=== PATIENT | female | born 1930 | race Caucasian/White ===

== ENCOUNTER 2016-12-03 14:12 | Emergency (ER) | payer MEDICARE ==
[~2016-12-03 14:12] MED LIST: ALLEGRA60 MG PO; AUGMENTIN875 MG PO; BENADRYL25 M1 PO; CEPHALEXIN500 MG PO; CIPRO250 MG PO; COUMADIN5 MG PO; COZAAR25 MG PO; CRANBERRY125 MG; ENTERIC COATED325 M1 PO; FUROSEMIDE20 MG PO; KLOR-CON 1010 MEQ PO; LORAZEPAM0.5 MG PO; LOVENOX100 MG/ML SC; MICRO-K 10 EQU10 MEQ PO; MORPHINE SULFAT15 M1 PO; MORPHINE SULFATE5 MG; MULTIPLE VITAMIN PO; OMEPRAZOLE20 MG PO; OXYCODONE/ACETA1 TA1 PO; OXYCONTIN CR10 MG PO; TRAZODONE HCL100 MG PO; [UNRECOGNIZED DRUG - OTHER]
--- NOTE | 2016-12-03 16:11 | DIAGNOSTIC IMAGING REPORT ---
PROCEDURE: XR CHEST 1 VIEW INDICATION: SHORTNESS OF BREATH TECHNIQUE: Portable AP view 03:48 p.m. COMPARISON: Chest 11/02/2016, 08/07/2016 FINDINGS: Lungs are clear. Heart and mediastinum are normal. Thorax is normal. IMPRESSION: 1. Negative chest.
--- NOTE | 2016-12-03 17:24 | ED ORDER SUMMARY ---
..... Patient: RONY DE GUZMAN OrderSheet [facility] VisitID: [id number] [address] [place] [place] [address] 86y, F Registration Date/Time: 12/03/2016 ORDER SHEET Weight: 61.2 kg (stated) Allergies: Sulfa Antibiotics GENERAL ORDERS: CBC w Diff Urgent (14:31 12/03/2016 EKoroleva P.A.-C) (Ack 15:02 RKaruga) (15:46 HOShaughnessy R.N.) CMP Urgent (14:31 12/03/2016 EKoroleva P.A.-C) (Ack 15:02 RKaruga) (15:46 HOShaughnessy R.N.) UA-Culture if indicated Urgent (14:31 12/03/2016 EKoroleva P.A.-C) (Ack 15:02 RKaruga) (15:46 HOShaughnessy R.N.) PT with INR Urgent (14:31 12/03/2016 EKoroleva P.A.-C) (Ack 15:02 RKaruga) (15:46 HOShaughnessy R.N.) PTT Urgent (14:31 12/03/2016 EKoroleva P.A.-C) (Ack 15:02 RKaruga) (15:46 HOShaughnessy R.N.) BNP Urgent (14:31 12/03/2016 EKoroleva P.A.-C) (Ack 15:02 RKaruga) (15:46 HOShaughnessy R.N.) PCT (Procalcitonin) Urgent (14:36 12/03/2016 EKoroleva P.A.-C) (Ack 15:02 RKaruga) (15:46 HOShaughnessy R.N.) Chest 1V Urgent (15:29 12/03/2016 EKoroleva P.A.-C) (Ack 15:37 RKaruga) (15:46 HOShaughnessy R.N.) Troponin-I Urgent (15:30 12/03/2016 EKoroleva P.A.-C) (Ack 15:37 RKaruga) (15:46 HOShaughralphy R.N.) EKG - ER Stat (15:30 12/03/2016 EKoroleva P.A.-C) (15:46 OHernandez) UA-Culture if indicated Urgent (17:14 12/03/2016 EKoroleva P.A.-C) (Ack 17:23 RKaruga) (18:37 HOShaughnessy R.N.) - (Antimicrobial susceptibility: culture with antibiotic specific: Ertapenam, Primaxin) (17:20 12/03/2016 EKoroleva P.A.-C) (18:37 HOShaughnessy R.N.) Culture, Urine (Urine, Catheter) (on second urine sent , catheter urine sample ) Urgent (18:26 12/03/2016 EKoroleva P.A.-C) (18:37 HOShaughnessy R.N.) MEDICATION ORDERS: IV FLUIDS: ORDER SHEET NOTES: [Electronically signed by Balbina JovelACarlos-Dagoberto (18:06 12/03/2016)] [Electronically signed by Brandan Cuevas R.N. (18:38 12/03/2016)] [Electronically locked/signed by Brandan Cuevas R.N. (18:38 12/03/2016)]
--- NOTE | 2016-12-03 17:24 | ED ORDER SUMMARY ---
..... Patient: RONY DE GUZMAN OrderSheet [facility] VisitID: [id number] [address] [place] [address] 86y, F Registration Date/Time: 12/03/2016 ORDER SHEET Weight: 61.2 kg (stated) Allergies: Sulfa Antibiotics GENERAL ORDERS: CBC w Diff Urgent (14:31 12/03/2016 EKoroleva P.A.-C) (Ack 15:02 RKaruga) (15:46 HOShaughnessy R.N.) CMP Urgent (14:31 12/03/2016 EKoroleva P.A.-C) (Ack 15:02 RKaruga) (15:46 HOShaughnessy R.N.) UA-Culture if indicated Urgent (14:31 12/03/2016 EKoroleva P.A.-C) (Ack 15:02 RKaruga) (15:46 HOShaughnessy R.N.) PT with INR Urgent (14:31 12/03/2016 EKoroleva P.A.-C) (Ack 15:02 RKaruga) (15:46 HOShaughnessy R.N.) PTT Urgent (14:31 12/03/2016 EKoroleva P.A.-C) (Ack 15:02 RKaruga) (15:46 HOShaughnessy R.N.) BNP Urgent (14:31 12/03/2016 EKoroleva P.A.-C) (Ack 15:02 RKaruga) (15:46 HOShaughnessy R.N.) PCT (Procalcitonin) Urgent (14:36 12/03/2016 EKoroleva P.A.-C) (Ack 15:02 RKaruga) (15:46 HOShaughnessy R.N.) Chest 1V Urgent (15:29 12/03/2016 EKoroleva P.A.-C) (Ack 15:37 RKaruga) (15:46 HOShaughnessy R.N.) Troponin-I Urgent (15:30 12/03/2016 EKoroleva P.A.-C) (Ack 15:37 RKaruga) (15:46 HOShaughralphy R.N.) EKG - ER Stat (15:30 12/03/2016 EKoroleva P.A.-C) (15:46 OHernandez) UA-Culture if indicated Urgent (17:14 12/03/2016 EKoroleva P.A.-C) (Ack 17:23 RKaruga) (18:37 HOShaughnessy R.N.) - (Antimicrobial susceptibility: culture with antibiotic specific: Ertapenam, Primaxin) (17:20 12/03/2016 EKoroleva P.A.-C) (18:37 HOShaughnessy R.N.) Culture, Urine (Urine, Catheter) (on second urine sent , catheter urine sample ) Urgent (18:26 12/03/2016 EKoroleva P.A.-C) (18:37 HOShaughnessy R.N.) MEDICATION ORDERS: IV FLUIDS: ORDER SHEET NOTES: [Electronically signed by Balbina JovelACarlos-Dagoberto (18:06 12/03/2016)] [Electronically signed by Brandan Cuevas R.N. (18:38 12/03/2016)] [Electronically locked/signed by Brandan Cuevas R.N. (18:38 12/03/2016)]
--- NOTE | 2016-12-03 17:24 | ED CLINICAL REPORT ---
Clinical Report - [facility] [address] [place] [address] 12/03/2016 14:14 Patient: RONY DE GUZMAN Time Seen: 1430 Dec 03 2016. Arrived- By private vehicle. Historian- patient and family. HISTORY OF PRESENT ILLNESS Chief Complaint: DYSURIA. This started just prior to arrival and still present. No vaginal pain or low back pain. She has had pain with urination. (Pt here with daughter on the were seen at urgent care clinic, started on keflex, and today report that call was placed for patient to come to er due to a resistant infection. Has been somewhat weak, although ambulatory. No diarrhea, no emsis. no known fevers.). Similar symptoms previously: Recent medical care: The patient was seen recently in a clinic. REVIEW OF SYSTEMS No vomiting, headache or fever. All systems otherwise negative, except as recorded above. PAST HISTORY ( PE 09/26 on warfarin pt is DNR, daughter in room as historian with POA). Problems: Pressure Ulcer. UTI - Urinary Tract Infection. Abnormal Test. Dementia. Renal Failure. Heart Disease. Abnormal EKG. Hip Fracture. Swelling of limb. Congestive Heart Failure. Chronic pain. Additional Surgeries: Hip Surgery. Hysterectomy. Medications: Acetaminophen Oral (Tablet 325 mg) 1-2 tablet, PRN. ASA Oral 325 mg, daily. Fexofenadine HCl Oral 60 mg, daily. Furosemide Oral 20 mg, daily. Klor-Con 10 Oral (Tablet Extended Release 10 meq) 1 tablet, daily. Losartan Potassium Oral 25 mg, daily. Omeprazole Oral 20 mg, 2x a day. OxyCODONE HCl Oral 10 mg, 4x a day as needed. TraZODone HCl Oral 100 mg, at bedtime. Warfarin Sodium Oral 5 mg, daily. Allergies: Sulfa Antibiotics. Definite Moderate(nausea). ADDITIONAL NOTES The nursing notes have been reviewed. PHYSICAL EXAM Vital Signs: 12/03/2016 14:25 BP: 132/36. HR: 51. RR: 16. O2 saturation: 98%. Temp: 97.4 F. Pain level now: 0/10. Appearance: Alert. HEENT: Normal external inspection. Eyes: No pale conjunctivae. ENT: No hearing deficit. CVS: Bradycardia. Respiratory: No respiratory distress. Breath sounds normal. Abdomen: Soft and nontender. Bowel sounds normal. No rebound tenderness. Skin: Skin warm. Normal skin color. No rash. Neuro: Mildly altered mental status. Eyes open spontaneously. Best verbal response: disoriented. Best motor response: obeys commands. LABS, X-RAYS, AND EKG EKG: EKG time: (52). No acute process. No acute ischemia. Rate: 52. Bradycardia. Normal P waves. Normal YUNG. Normal QRS complex. Normal axis. Normal ST and T waves and QT. The study has been interpreted contemporaneously. The study has been independently viewed by me. The EKG appears to be a good tracing. Chest X-ray: (IMPRESSION: 1. Negative chest. Electronically Final signed by:Sami Yu MD 12/03/2016 4:15:26 PM). Laboratory Tests: UA-Culture if indicated: (BRITTANY: 12/03/2016 14:44) ( MsgRcvd 12/03/2016 15:07) Final results Test Result Flag Units (Reference) URINE COLOR YELLOW URINE APPEARANCE SL CLOUDY URINE GLUCOSE NEGATIVE (NEGATIVE) URINE BILIRUBIN NEGATIVE (NEGATIVE) URINE KETONE NEGATIVE (NEGATIVE) URINE SPECIFIC GRAVITY 1.010 (1.010-1.030) URINE PH 6.0 (5.0-8.0) URINE PROTEIN NEGATIVE (NEGATIVE) URINE UROBILINOGEN 0.2 EU/dL (0.2-1.0) URINE NITRITE NEGATIVE (NEGATIVE) URINE BLOOD TRACE-LYSED (NEGATIVE) URINE LEUK ESTERASE POSITIVE (NEGATIVE) URINE RBC NONE SEEN rbc/hpf (0-1) URINE WBC 25-50 wbc/hpf (0-1) URINE EPITHELIAL CELLS 0-1 EPI/hpf (0-5) URINE BACTERIA FEW (1+) (NONE SEEN) URINE COMMENT CULTURE INDICATED 3-5 Hyaline Casts/l.p.f.URINE CULTURES ARE SET-UP BASED ON THE FOLLOWING CRITERIA:POSITIVE NITRITEPOSITIVE LEUKOCYTE ESTERASEGREATER THAN 10 WHITE BLOOD CELLSMODERATE (2+) OR GREATER BACTERIA CBC w Diff: (BRITTANY: 12/03/2016 15:03) ( MsgRcvd 12/03/2016 15:29) Final results Test Result Flag Units (Reference) WHITE BLOOD COUNT 5.2 K/uL (4.5-11.5) RED BLOOD COUNT 3.49 L M/uL (4.00-5.20) HEMOGLOBIN 11.1 L gm/dL (12.0-16.0) HEMATOCRIT 34.8 L % (36.0-46.0) MEAN CELL VOLUME 100 fL (80-100) MEAN CORPUSCULAR HGB 32 pg (26-34) MEAN CORPUSCULAR HGB CONC 32 g/dL (31-37) RED CELL DISTRIBUTION WIDTH 15.2 H % (11.6-14.8) PLATELET COUNT 220 K/uL (150-400) NEUTROPHIL % 66.3 % (50-75) LYMPH % 22.6 L % (25-40) MONO % 8.1 % (3-14) EOSINOPHIL % 2.3 % (0-4) BASOPHIL % 0.7 % (0-2) PT with INR: (BRITTANY: 12/03/2016 15:03) ( [facility] 12/03/2016 15:50) Final results Test Result Flag Units (Reference) INR 2.6 H (0.8-1.2) Low Intensity Therapy: INR 1.5-2.0 PT range 18.5-23.1Mod.Intensity Therapy: INR 2.0-3.0 PT range 23.1-31.5High Intensity Therapy: INR 2.5-3.5 PT range 27.4-35.5High Intensity Therapy 2: INR 3.0-4.0 PT range 31.5-39.3 APTT 39 H SECONDS (24-34) Troponin-I: (BRITTANY: 12/03/2016 15:03) ( [facility] 12/03/2016 16:01) Final results Test Result Flag Units (Reference) TROPONIN I <0.05 ng/mL (0.00-1.5) TROPONIN REFERENCE RANGE:<0.1 NEGATIVE0.1-1.5 INDETERMINANT>1.5 POSITIVE [id number]: (BRITTANY: 12/03/2016 15:03) ( MsgRcvd 12/03/2016 15:49) Final results Test Result Flag Units (Reference) PROCALCITONIN <0.5 ng/mL (0-0.5) PCT Concentration: Interpretation : Risk/option for action PCT <=0.5 ng/mL : Systemic : Low risk forinfection(sepsis): progression to severeis not likely. : systemic infection.Local bacterial : CAUTION-PCT levelsinfection is : below 0.5 ng/mL do notpossible. : exclude an infection,because localizedinfections (withoutsystemic signs) may beassociated with suchlow levels. If PCT ismeasured very earlyafter a bacterialchallenge (usually <6hours), these valuesmay still be low. Inthis case PCT shouldbe re-assessed 6-24hours later. PCT >0.5 and : Systemic infection: Moderate risk for<= 2 ng/mL : (sepsis) is : progression to severepossible, but : systemic infection.other conditions : The patient should beare known to : closely monitoredelevate PCT. : both clinically andby re-assessing PCTwithin 6-24 hours. PCT > 2 ng/mL : Systemic infection: High risk for(sepsis) is likely: progression to severeunless other : systemic infection.causes are known. : PCT >= 10 ng/mL : Important systemic: High likelihood ofinflammatory : severe sepsis orresponse, almost : septic shock.exclusively due to:severe bacterial :sepsis or septic :shock. : BNP: (BRITTANY: 12/03/2016 15:03) ( ScgRcvd 12/03/2016 16:01) Final results Test Result Flag Units (Reference) B-TYPE NATRIURETIC PEPTIDE 339 H pg/ml (5-100) CMP: (BRITTANY: 12/03/2016 15:03) ( ScgRcvd 12/03/2016 15:27) Final results Test Result Flag Units (Reference) GLUCOSE 101 mg/dL (70-110) BUN 37 H mg/dL (7-18) CREATININE 1.5 H mg/dL (0.6-1.3) Estimated GFR 35.16 mL/min Estimated GFR- 42.62 mL/min Note: Persistent reduction over 3 months in eGFR<60 mL/min/1.73 m2 defines CKD. Patients with eGFR values>=60 mL/min/1.73 m2 may also have CKD if evidence ofpersistent proteinuria. Additional information may be foundat www.kidney.org. SODIUM 138 mmol/L (136-145) POTASSIUM 3.9 mmol/L (3.5-5.1) CHLORIDE 105 mmol/L (98-107) CARBON DIOXIDE 23 mmol/L (21-32) CALCIUM 8.3 L mg/dL (8.5-10.1) TOTAL PROTEIN 6.5 g/dL (6.4-8.2) ALBUMIN 3.1 L g/dL (3.3-5.0) BILIRUBIN, TOTAL 0.5 mg/dL (0.0-1.0) ALKALINE PHOSPHATASE 75 U/L (46-116) AST (SGOT) 20 U/L (15-37) ALT (SGPT) 17 U/L (12-78) . PROGRESS AND PROCEDURES Course of Care: UA from [facility] 11/23: rslt 2: proteus (sensitive to ceftriaxone) pt was previously on cephalesporone rslt 1: enterobacter > 100,000, sensitive to only Tobramycin, (Indeterminate to: levofloxacin/ nitrofurantoin/cipro) Left foot/ sacral ulcer of known history with no surrounding erythema, direct dressings not removed, as these are being addressed by home health nurse, and do not appear to be worsening, and or area of warmth. Discussed case with DR. Gallego, who recommends Discussed with shipbuilding draftsperson ID Dr. Arreguin ([facility]) who recommends getting accurate cultures, and given pt is non septic, and largely asx, to hold on abx. Would like to have expanded sensitivity on culture from today, as the culture from is old, and had proteus as well, and pt since then has been treated. This extensive plan was discussed with daughter, who is best reached at phone number that ends at [phone]/ [place] planning was contacted as the thought was for patient to go home with PICC line on tobramycin, and she would have availability of teaching for daughter to administer such medications. This plan may still need to be executed if she grows enterobacter, which is resistant. Pt and daughter in room, and lengthy discussion about such. Pt is afebrile, non septic, without leukocytosis, and left shift. Culture pending Procalcitonin < 0.5. 12/03/2016 16:22 BP: 119/46. HR: 58. RR: 16. O2 saturation: 100%. Temp: 97.4 F. Pain level now: 0/10. Patient is stable. The patient's symptoms are unchanged. Patient/family counseled. Disposition: Discharged. Condition: good. CLINICAL IMPRESSION Chronic cystitis. Chronic anticoagulation due to recent PE Ambulates with walker Chronic Renal Failure. INSTRUCTIONS Drink plenty of fluids. (continue medications). Follow-up: Follow up with your doctor in three days. Follow up contact number. Understanding of the discharge instructions verbalized by family. (Electronically signed by Balbina Jovel P.A.-C 12/03/2016 18:06) Addenda for RONY DE GUZMAN VisitID: [id number] Date: 12/03/2016 12/03/2016 17:35 DC Planning notes: 86 yr old female pt in the ED came in for UTI and per ED MD and ED PA, pt will be needing home IV abo. TC to [facility] care and they take pt's insurance ([employer]), but they were closing at 5pm so they are unable to set anything up at this time. Spoke to ED MD and ED PA re plans, they are waiting for ID doctor to call back to confirm meds. The meds is not available at this time and awaiting for it from [facility]. Pt will be getting a PICC. Spoke to pt and daughter at bedside. Daughter is the primary caregiver for pt. She informed me that pt has home health RN from [facility]. Explained to pt and daughter what home infusion is about. Daughter is aware that she will be taught how to administer the medicine. I explained that insurance covers for the meds but unsure of the co pay at this time. Discussed the plan, pt will get a PICC and possibly the first antibiotic dose , then will dc home and I will work on setting up the home infusion for her in the morning since home infusion agency is closed. Asked daughter if she has preference for home infusion agency and she stated she does not have one. Will set up order in AM and will call daughter for update. Daughter is okay with the plan. (Electronically signed by Jv Turcios R.N. - 12/03/2016 17:35) 12/03/2016 17:36 DC Planning: TC for ER PA and she informed me that the Infectious Disease MD called and prefer for pt not to be on IV abo at this time. Pt will dc home without IV abo. Daughter is aware and is okay with this plan. (Electronically signed by Jv Turcios R.N. - 12/03/2016 17:36)
--- NOTE | 2016-12-03 17:24 | ED NURSING NOTES ---
Clinical Report - [facility] [address] [place] [place] [address] 12/03/2016 14:14 Patient: RONY DE GUZMAN TRIAGE Triage time 1425 PM. Chief Complaint: PAINFUL URINATION and (confirmed UTI at Urgent Care). Alert. No acute distress. --14:31 Brandan Cuevas R.N. 14:25 12/03/16. BP: 132/36. HR: 51. RR: 16. O2 saturation: 98%. Temp: 97.4 F (oral). Pain level now: 0/10. --14:31 Brandan Cuevas R.N. Weight: 61.2 kg stated. Height/Length: 62 inches Per Patient. BMI: 24.7. --14:30 Brandan Cuevas R.N. Medications Acetaminophen Oral (Tablet 325 mg) 1-2 tablet, PRN. ASA Oral 325 mg, daily. Fexofenadine HCl Oral 60 mg, daily. Furosemide Oral 20 mg, daily. Klor-Con 10 Oral (Tablet Extended Release 10 meq) 1 tablet, daily. Losartan Potassium Oral 25 mg, daily. Omeprazole Oral 20 mg, 2x a day. OxyCODONE HCl Oral 10 mg, 4x a day as needed. TraZODone HCl Oral 100 mg, at bedtime. Warfarin Sodium Oral 5 mg, daily. --14:28 Brandan Cuevas R.N. Allergies Sulfa Antibiotics. Definite Moderate(nausea) --14:28 Brandan Cuevas R.N. History Arrived by private vehicle. Historian: patient. Accompanied by family. This is a recurrent problem. (about 7 days ago). Last oral intake by patient was (11am). Treatment CIRCULATION SALES REPRESENTATIVE: (cephalexin). SOCIAL HX: Smoker- current status unknown (never smoked). Alcohol use. (no). History of drug use. (no). FALL RISK ASSESSMENT: Fall risk assessment completed. No fall risk identified. NUTRITIONAL RISK ASSESSMENT: The nutritional risk assessment revealed no deficiencies. FUNCTIONAL ASSESSMENT: Functional assessment: no impairments noted. LEARNING NEEDS ASSESSMENT: The learning needs assessment revealed no barriers. SKIN INTEGRITY ASSESSMENT: Skin integrity risk assessment completed. No skin integrity risk identified. --14:31 Brandan Cuevas R.N. PROBLEMS: Pressure Ulcer. UTI - Urinary Tract Infection. Abnormal Test. Dementia. Renal Failure. Heart Disease. Abnormal EKG. Hip Fracture. Swelling of limb. Congestive Heart Failure. Chronic pain. --14:28 Brandan Cuevas R.N. ADDITIONAL SURGERIES: Hip Surgery. Hysterectomy. --14:28 Brandan Cuevas R.N. PHYSICAL ASSESSMENT Ambulatory to room. GENERAL / NEURO / PSYCH: Alert. Oriented X 4. Appears in no acute distress. HEENT: Mucous membranes are pink. RESPIRATORY: Respirations not labored. Breath sounds within normal limits. CVS: Normal heart rate and rhythm. Capillary refill less than 2 seconds. GI / : Abdomen soft and nontender. Bowel sounds within normal limits. No vaginal bleeding. No vaginal discharge. No genital lesions noted. SKIN: Skin is warm and dry. ( pressure ulcer on coccyx and left heal. treated by wound nurse). --14:32 Brandan Cuevas R.N. NURSING PROGRESS NOTES Checked patient name and birthdate: family confirmed. Instructions provided to collect clean catch urine and patient verbalized understanding. Clean catch urine collected with return of yellow-colored cloudy urine; odor is normal; sample sent to lab for urinalysis. Specimen labeled in the presence of the patient. The patient is calm and resting quietly. ( Patient able to ambulate to the restroom with the assistance of her walker.). --14:48 Brandan Cuevas R.N. EKG time: (1545). EKG was ordered, performed by a tech and shown to the ED physician. --15:46 Pam Marcos The patient is calm and resting quietly. Overall patient status is the same- she states feels the same. GI / : Abdomen soft and nontender. Bowel sounds within normal limits. No vaginal bleeding. SKIN: Skin is warm and dry. Skin color within normal limits. --16:23 Brandan Cuevas R.N. 16:22 12/03/16. BP: 119/46. HR: 58. RR: 16. O2 saturation: 100%. Temp: 97.4 F (oral). Pain level now: 0/10. --16:23 Brandan Cuevas R.N. Call light placed in reach. Side rails up x 1. Bed placed in lowest position. Brakes of bed on. --16:23 Brandan Cuevas R.N. DISPOSITION / DISCHARGE Condition at departure: improved. No learning barriers present. Ability to learn limited by poor comprehension; teaching performed with the patient and family. Discharge instructions provided and reviewed with the patient. Patient verbalized understanding. Written instructions provided in Irish. The patient was discharged home and accompanied by parent. She left the Emergency Department ambulatory and via private vehicle. Parent driving. --18:35 Brandan Cuevas R.N. 18:34 12/03/16. BP: 115/41. HR: 74. RR: 16. O2 saturation: 100%. Temp: 97.7 F. Pain level now: 0/10. --18:35 Brandan Cuevas R.N. The goals identified in the patient's plan of care were met. FALL RISK ASSESSMENT: Fall risk assessment completed. No fall risk identified. --18:35 Brandan Cuevas R.N. Departure time: 1835 PM. --18:35 Brandan Cuevas R.N. Locked/Released at 12/03/2016 18:38 by Brandan Cuevas R.N.
--- NOTE | 2016-12-03 17:24 | ED CLINICAL REPORT ---
Clinical Report - Physicians/Mid Levels [address] [place] [address] 12/03/2016 14:14 Patient: RONY DE GUZMAN Time Seen: 1430 Dec 03 2016. Arrived- By private vehicle. Historian- patient and family. HISTORY OF PRESENT ILLNESS Chief Complaint: DYSURIA. This started just prior to arrival and still present. No vaginal pain or low back pain. She has had pain with urination. (Pt here with daughter on the were seen at urgent care clinic, started on keflex, and today report that call was placed for patient to come to er due to a resistant infection. Has been somewhat weak, although ambulatory. No diarrhea, no emsis. no known fevers.). Similar symptoms previously: Recent medical care: The patient was seen recently in a clinic. REVIEW OF SYSTEMS No vomiting, headache or fever. All systems otherwise negative, except as recorded above. PAST HISTORY ( PE 09/26 on warfarin pt is DNR, daughter in room as historian with POA). Problems: Pressure Ulcer. UTI - Urinary Tract Infection. Abnormal Test. Dementia. Renal Failure. Heart Disease. Abnormal EKG. Hip Fracture. Swelling of limb. Congestive Heart Failure. Chronic pain. Additional Surgeries: Hip Surgery. Hysterectomy. Medications: Acetaminophen Oral (Tablet 325 mg) 1-2 tablet, PRN. ASA Oral 325 mg, daily. Fexofenadine HCl Oral 60 mg, daily. Furosemide Oral 20 mg, daily. Klor-Con 10 Oral (Tablet Extended Release 10 meq) 1 tablet, daily. Losartan Potassium Oral 25 mg, daily. Omeprazole Oral 20 mg, 2x a day. OxyCODONE HCl Oral 10 mg, 4x a day as needed. TraZODone HCl Oral 100 mg, at bedtime. Warfarin Sodium Oral 5 mg, daily. Allergies: Sulfa Antibiotics. Definite Moderate(nausea). ADDITIONAL NOTES The nursing notes have been reviewed. PHYSICAL EXAM Vital Signs: 12/03/2016 14:25 BP: 132/36. HR: 51. RR: 16. O2 saturation: 98%. Temp: 97.4 F. Pain level now: 0/10. Appearance: Alert. HEENT: Normal external inspection. Eyes: No pale conjunctivae. ENT: No hearing deficit. CVS: Bradycardia. Respiratory: No respiratory distress. Breath sounds normal. Abdomen: Soft and nontender. Bowel sounds normal. No rebound tenderness. Skin: Skin warm. Normal skin color. No rash. Neuro: Mildly altered mental status. Eyes open spontaneously. Best verbal response: disoriented. Best motor response: obeys commands. LABS, X-RAYS, AND EKG EKG: EKG time: (52). No acute process. No acute ischemia. Rate: 52. Bradycardia. Normal P waves. Normal YUNG. Normal QRS complex. Normal axis. Normal ST and T waves and QT. The study has been interpreted contemporaneously. The study has been independently viewed by me. The EKG appears to be a good tracing. Chest X-ray: (IMPRESSION: 1. Negative chest. Electronically Final signed by:Sami Yu MD 12/03/2016 4:15:26 PM). Laboratory Tests: UA-Culture if indicated: (BRITTANY: 12/03/2016 14:44) ( MsgRcvd 12/03/2016 15:07) Final results Test Result Flag Units (Reference) URINE COLOR YELLOW URINE APPEARANCE SL CLOUDY URINE GLUCOSE NEGATIVE (NEGATIVE) URINE BILIRUBIN NEGATIVE (NEGATIVE) URINE KETONE NEGATIVE (NEGATIVE) URINE SPECIFIC GRAVITY 1.010 (1.010-1.030) URINE PH 6.0 (5.0-8.0) URINE PROTEIN NEGATIVE (NEGATIVE) URINE UROBILINOGEN 0.2 EU/dL (0.2-1.0) URINE NITRITE NEGATIVE (NEGATIVE) URINE BLOOD TRACE-LYSED (NEGATIVE) URINE LEUK ESTERASE POSITIVE (NEGATIVE) URINE RBC NONE SEEN rbc/hpf (0-1) URINE WBC 25-50 wbc/hpf (0-1) URINE EPITHELIAL CELLS 0-1 EPI/hpf (0-5) URINE BACTERIA FEW (1+) (NONE SEEN) URINE COMMENT CULTURE INDICATED 3-5 Hyaline Casts/l.p.f.URINE CULTURES ARE SET-UP BASED ON THE FOLLOWING CRITERIA:POSITIVE NITRITEPOSITIVE LEUKOCYTE ESTERASEGREATER THAN 10 WHITE BLOOD CELLSMODERATE (2+) OR GREATER BACTERIA CBC w Diff: (BRITTANY: 12/03/2016 15:03) ( MsgRcvd 12/03/2016 15:29) Final results Test Result Flag Units (Reference) WHITE BLOOD COUNT 5.2 K/uL (4.5-11.5) RED BLOOD COUNT 3.49 L M/uL (4.00-5.20) HEMOGLOBIN 11.1 L gm/dL (12.0-16.0) HEMATOCRIT 34.8 L % (36.0-46.0) MEAN CELL VOLUME 100 fL (80-100) MEAN CORPUSCULAR HGB 32 pg (26-34) MEAN CORPUSCULAR HGB CONC 32 g/dL (31-37) RED CELL DISTRIBUTION WIDTH 15.2 H % (11.6-14.8) PLATELET COUNT 220 K/uL (150-400) NEUTROPHIL % 66.3 % (50-75) LYMPH % 22.6 L % (25-40) MONO % 8.1 % (3-14) EOSINOPHIL % 2.3 % (0-4) BASOPHIL % 0.7 % (0-2) PT with INR: (BRITTANY: 12/03/2016 15:03) ( [facility] 12/03/2016 15:50) Final results Test Result Flag Units (Reference) INR 2.6 H (0.8-1.2) Low Intensity Therapy: INR 1.5-2.0 PT range 18.5-23.1Mod.Intensity Therapy: INR 2.0-3.0 PT range 23.1-31.5High Intensity Therapy: INR 2.5-3.5 PT range 27.4-35.5High Intensity Therapy 2: INR 3.0-4.0 PT range 31.5-39.3 APTT 39 H SECONDS (24-34) Troponin-I: (BRITTANY: 12/03/2016 15:03) ( [facility] 12/03/2016 16:01) Final results Test Result Flag Units (Reference) TROPONIN I <0.05 ng/mL (0.00-1.5) TROPONIN REFERENCE RANGE:<0.1 NEGATIVE0.1-1.5 INDETERMINANT>1.5 POSITIVE [id number]: (BRITTANY: 12/03/2016 15:03) ( MsgRcvd 12/03/2016 15:49) Final results Test Result Flag Units (Reference) PROCALCITONIN <0.5 ng/mL (0-0.5) PCT Concentration: Interpretation : Risk/option for action PCT <=0.5 ng/mL : Systemic : Low risk forinfection(sepsis): progression to severeis not likely. : systemic infection.Local bacterial : CAUTION-PCT levelsinfection is : below 0.5 ng/mL do notpossible. : exclude an infection,because localizedinfections (withoutsystemic signs) may beassociated with suchlow levels. If PCT ismeasured very earlyafter a bacterialchallenge (usually <6hours), these valuesmay still be low. Inthis case PCT shouldbe re-assessed 6-24hours later. PCT >0.5 and : Systemic infection: Moderate risk for<= 2 ng/mL : (sepsis) is : progression to severepossible, but : systemic infection.other conditions : The patient should beare known to : closely monitoredelevate PCT. : both clinically andby re-assessing PCTwithin 6-24 hours. PCT > 2 ng/mL : Systemic infection: High risk for(sepsis) is likely: progression to severeunless other : systemic infection.causes are known. : PCT >= 10 ng/mL : Important systemic: High likelihood ofinflammatory : severe sepsis orresponse, almost : septic shock.exclusively due to:severe bacterial :sepsis or septic :shock. : BNP: (BRITTANY: 12/03/2016 15:03) ( GagRcvd 12/03/2016 16:01) Final results Test Result Flag Units (Reference) B-TYPE NATRIURETIC PEPTIDE 339 H pg/ml (5-100) CMP: (BRITTANY: 12/03/2016 15:03) ( GagRcvd 12/03/2016 15:27) Final results Test Result Flag Units (Reference) GLUCOSE 101 mg/dL (70-110) BUN 37 H mg/dL (7-18) CREATININE 1.5 H mg/dL (0.6-1.3) Estimated GFR 35.16 mL/min Estimated GFR- 42.62 mL/min Note: Persistent reduction over 3 months in eGFR<60 mL/min/1.73 m2 defines CKD. Patients with eGFR values>=60 mL/min/1.73 m2 may also have CKD if evidence ofpersistent proteinuria. Additional information may be foundat www.kidney.org. SODIUM 138 mmol/L (136-145) POTASSIUM 3.9 mmol/L (3.5-5.1) CHLORIDE 105 mmol/L (98-107) CARBON DIOXIDE 23 mmol/L (21-32) CALCIUM 8.3 L mg/dL (8.5-10.1) TOTAL PROTEIN 6.5 g/dL (6.4-8.2) ALBUMIN 3.1 L g/dL (3.3-5.0) BILIRUBIN, TOTAL 0.5 mg/dL (0.0-1.0) ALKALINE PHOSPHATASE 75 U/L (46-116) AST (SGOT) 20 U/L (15-37) ALT (SGPT) 17 U/L (12-78) . PROGRESS AND PROCEDURES Course of Care: UA from [facility] 11/23: rslt 2: proteus (sensitive to ceftriaxone) pt was previously on cephalesporone rslt 1: enterobacter > 100,000, sensitive to only Tobramycin, (Indeterminate to: levofloxacin/ nitrofurantoin/cipro) Left foot/ sacral ulcer of known history with no surrounding erythema, direct dressings not removed, as these are being addressed by home health nurse, and do not appear to be worsening, and or area of warmth. Discussed case with DR. Gallego, who recommends Discussed with validation consultant ID Dr. Arreguin ([facility]) who recommends getting accurate cultures, and given pt is non septic, and largely asx, to hold on abx. Would like to have expanded sensitivity on culture from today, as the culture from is old, and had proteus as well, and pt since then has been treated. This extensive plan was discussed with daughter, who is best reached at phone number that ends at [phone]/ [place] planning was contacted as the thought was for patient to go home with PICC line on tobramycin, and she would have availability of teaching for daughter to administer such medications. This plan may still need to be executed if she grows enterobacter, which is resistant. Pt and daughter in room, and lengthy discussion about such. Pt is afebrile, non septic, without leukocytosis, and left shift. Culture pending Procalcitonin < 0.5. 12/03/2016 16:22 BP: 119/46. HR: 58. RR: 16. O2 saturation: 100%. Temp: 97.4 F. Pain level now: 0/10. Patient is stable. The patient's symptoms are unchanged. Patient/family counseled. Disposition: Discharged. Condition: good. CLINICAL IMPRESSION Chronic cystitis. Chronic anticoagulation due to recent PE Ambulates with walker Chronic Renal Failure. INSTRUCTIONS Drink plenty of fluids. (continue medications). Follow-up: Follow up with your doctor in three days. Follow up contact number. Understanding of the discharge instructions verbalized by family. (Electronically signed by Balbina Jovel P.A.-C 12/03/2016 18:06) Addenda for RONY DE GUZMAN VisitID: [id number] Date: 12/03/2016 12/03/2016 17:35 DC Planning notes: 86 yr old female pt in the ED came in for UTI and per ED MD and ED PA, pt will be needing home IV abo. TC to [facility] care and they take pt's insurance ([employer]), but they were closing at 5pm so they are unable to set anything up at this time. Spoke to ED MD and ED PA re plans, they are waiting for ID doctor to call back to confirm meds. The meds is not available at this time and awaiting for it from [facility]. Pt will be getting a PICC. Spoke to pt and daughter at bedside. Daughter is the primary caregiver for pt. She informed me that pt has home health RN from [facility]. Explained to pt and daughter what home infusion is about. Daughter is aware that she will be taught how to administer the medicine. I explained that insurance covers for the meds but unsure of the co pay at this time. Discussed the plan, pt will get a PICC and possibly the first antibiotic dose , then will dc home and I will work on setting up the home infusion for her in the morning since home infusion agency is closed. Asked daughter if she has preference for home infusion agency and she stated she does not have one. Will set up order in AM and will call daughter for update. Daughter is okay with the plan. (Electronically signed by Jv Turcios R.N. - 12/03/2016 17:35) 12/03/2016 17:36 DC Planning: TC for ER PA and she informed me that the Infectious Disease MD called and prefer for pt not to be on IV abo at this time. Pt will dc home without IV abo. Daughter is aware and is okay with this plan. (Electronically signed by Jv Turcios R.N. - 12/03/2016 17:36)
--- NOTE | 2016-12-03 18:38 | ED MAR SUMMARY ---
..... Medication Administration Record [facility] [address], [place] [id number] Patient: ALANNA DE GUZMANJoana Sherwood Visit ID: [id number] 86y, F Weight: 61.2 kg Height/Length: 62 in BMI: 24.7 ALLERGIES: Sulfa Antibiotics
--- NOTE | 2016-12-03 18:38 | ED DISCHARGE INSTRUCTIONS ---
Patient: RONY DE GUZMAN General Instructions [facility] VisitID: [id number] [place] [address] 86y, F Registration Date/Time: 12/03/2016 Chronic cystitis. Chronic anticoagulation due to recent PE Ambulates with walker Chronic Renal Failure. INSTRUCTIONS Drink plenty of fluids. (continue medications). Follow-up: Follow up with your doctor in three days. Follow up contact number. Understanding of the discharge instructions verbalized by family. ADDITIONAL INFORMATION Bladder Infection,Female (Adult) A bladder infection ("cystitis" or "UTI") usually causes a constant urge to urinate and a burning when passing urine. Urine may be cloudy, smelly or dark. There may be pain in the lower abdomen. A bladder infection occurs when bacteria from the vaginal area enter the bladder opening (urethra). This can occur from sexual intercourse, wearing tight clothing, dehydration and other factors. Home Care: Drink lots of fluids (at least 6-8 glasses a day, unless you must restrict fluids for other medical reasons). This will force the medicine into your urinary system and flush the bacteria out of your body. Avoid sexual intercourse until your symptoms are gone. Avoid caffeine, alcohol and spicy foods. These can irritate the bladder. A bladder infection is treated with antibiotics. You may also be given Pyridium (generic = phenazopyridine) to reduce the burning sensation. This medicine will cause your urine to become a bright orange color. The orange urine may stain clothing. You may wear a pad or panty-liner to protect clothing. Preventing Future Infections: Always wipe from front to back after a bowel movement. Keep the genital area clean and dry. Drink plenty of fluids each day to avoid dehydration. Both sexual partners should wash before intercourse. Urinate right after intercourse to flush out the bladder. Wear cotton underwear and cotton-lined panty hose; avoid tight-fitting pants. If you are on control pills and are having frequent bladder infections, discuss with your doctor. Follow Up: Return to this facility or see your doctor if ALL symptoms are not gone after three days of treatment. Get Prompt Medical Attention if any of the following occur: Fever of 100.4F (38C) or higher, or as directed by your healthcare provider No improvement by the third day of treatment Increasing back or abdominal pain Repeated vomiting; unable to keep medicine down Weakness, dizziness or fainting Vaginal discharge Pain, redness or swelling in the labia (outer vaginal area) You have been given the following additional information: Bladder Infection, Female (Adult) (Electronically signed by Balbina Jovel P.A.-C 12/03/2016 18:06)
--- NOTE | 2016-12-03 18:38 | ED MED RECONCILIATION SUMMARY ---
Patient: RONY DE GUZMAN Medication Reconciliation Report [facility] VisitID: [id number] [address] [place] [address] 86y, F Registration Date/Time: 12/03/2016 Weight: 61.2 kg Height/Length: 62 in. BMI: 24.7 ALLERGIES: Sulfa Antibiotics The patient's Home Medications are listed below: THE FOLLOWING MEDICATIONS NEED TO BE RECONCILED: Acetaminophen Oral (325 mg) 1-2 tablet, PRN ASA Oral 325 mg, daily Fexofenadine HCl Oral 60 mg, daily Furosemide Oral 20 mg, daily Klor-Con 10 Oral (10 meq) 1 tablet, daily Losartan Potassium Oral 25 mg, daily Omeprazole Oral 20 mg, 2x a day OxyCODONE HCl Oral 10 mg, 4x a day TraZODone HCl Oral 100 mg, at bedtime Warfarin Sodium Oral 5 mg, daily The source(s) of the original Home Medication information: Not obtained. The following Medications were given to the patient in the Emergency Department: None. The following Medications were prescribed to the patient: None.
--- NOTE | 2016-12-03 18:38 | ED MAR SUMMARY ---
..... Medication Administration Record [facility] [address] [place], [place] [id number] Patient: ALANNA DE GUZMANJoana Sherwood Visit ID: [id number] 86y, F Weight: 61.2 kg Height/Length: 62 in BMI: 24.7 ALLERGIES: Sulfa Antibiotics
--- NOTE | 2016-12-03 18:38 | ED MED RECONCILIATION SUMMARY ---
Patient: RONY DE GUZMAN Medication Reconciliation Report [facility] VisitID: [id number] [address] [place] [address] 86y, F Registration Date/Time: 12/03/2016 Weight: 61.2 kg Height/Length: 62 in. BMI: 24.7 ALLERGIES: Sulfa Antibiotics The patient's Home Medications are listed below: THE FOLLOWING MEDICATIONS NEED TO BE RECONCILED: Acetaminophen Oral (325 mg) 1-2 tablet, PRN ASA Oral 325 mg, daily Fexofenadine HCl Oral 60 mg, daily Furosemide Oral 20 mg, daily Klor-Con 10 Oral (10 meq) 1 tablet, daily Losartan Potassium Oral 25 mg, daily Omeprazole Oral 20 mg, 2x a day OxyCODONE HCl Oral 10 mg, 4x a day TraZODone HCl Oral 100 mg, at bedtime Warfarin Sodium Oral 5 mg, daily The source(s) of the original Home Medication information: Not obtained. The following Medications were given to the patient in the Emergency Department: None. The following Medications were prescribed to the patient: None.
== END 2016-12-03 18:35 | disposition home or self-care (01) ==
LOC: ED SRH 14:12
DX: N30.20 Other chronic cystitis without hematuria (principal); N18.9 Chronic kidney disease, unspecified; Z79.01 Long term (current) use of anticoagulants; Z88.2 Allergy status to sulfonamides
CPT/HCPCS: 81460; 90004; 90074; 90100; 90148; 90469; 90616; 91320; 93004; 94001; 94060; 95059